=== PATIENT | male | born 2000 | race Caucasian/White ===

== ENCOUNTER 2024-01-05 05:07 | Emergency (ER) | payer SELFPAY ==
[~2024-01-05] VITALS: Ht 175.3 cm; Wt 59.0 kg
[2024-01-05 05:15] VITALS: O2SAT 99
[2024-01-05 05:28] VITALS: BP 108/65; PULSE 76; RESP 18; TEMP 99; O2SAT 97
[2024-01-05] MEDS ORDERED: ACYC200C31 PO (05:53)
[2024-01-05] MEDS ORDERED: GABA800T97 MT (05:53)
[2024-01-05] MEDS ORDERED: OXYC-100 MT (05:53)
[2024-01-05] MEDS ORDERED: ACYCLOVIR 400 MG TABLET PO STA (05:55)
[2024-01-05] MEDS: OXYCODONE HCL/ACETAMINOPHEN 5/325MG TABLET PO STA (05:55)
[2024-01-05] MEDS: GABAPENTIN 400MG CAPSULE PO STA (06:15)
[2024-01-05] MEDS: OXYCODONE HCL/ACETAMINOPHEN 5/325MG TABLET PO NR (06:15)
[2024-01-05] MEDS: ACYCLOVIR 200 MG/5 ML ORAL SYR PO NR (06:15)
== END 2024-01-05 05:58 | disposition home or self-care (01) ==
LOC: ER 05:07
DX: B02.9 Zoster without complications (principal); R21 Rash and other nonspecific skin eruption
CPT/HCPCS: 99284; Z7610